=== PATIENT | male | born 1965 | race Caucasian/White ===

== ENCOUNTER 2023-08-02 06:23 | Day surgery (SDC) | payer BC, SELFPAY ==
[2023-07-28 06:38] VITALS: BMI 26.1
[2023-08-02] VITALS (7 sets, daily range): BP systolic 103–152; BP diastolic 55–90; BMI 26.1
[2023-08-02] MEDS: TYLENOL 1000 MG PO (09:54)
[2023-08-02] MEDS: CELEBREX 200 MG PO (09:54)
[2023-08-02] MEDS: NORMOSOL-R 1000 IV (09:55)
== END 2023-08-02 13:41 | disposition home or self-care (01) ==
LOC: SDS 06:23
PROVIDERS: ATTENDING PHYSICIAN Orthopaedic Surgery Hand Surgery; FAMILY PHYSICIAN Internal Medicine
DX: M75.121 Complete rotator cuff tear or rupture of right shoulder, not specified as traumatic (principal); M75.41 Impingement syndrome of right shoulder
CPT/HCPCS: 29827; 29826; 36415; 93005; C1713